=== PATIENT | female | born 1975 | race Caucasian/White ===

== ENCOUNTER → 2021-06-30 | Outpatient (CLI) | payer OTHER | END | disposition home or self-care (01) | LOC: MAMO-SONO 12:12 | PROVIDERS: ATTEND Obstetrics & Gynecology | DX: Z12.31 Encounter for screening mammogram for malignant neoplasm of breast (principal); E06.9 Thyroiditis, unspecified; N94.4 Primary dysmenorrhea ==

== ENCOUNTER 2021-11-26 08:19 | Outpatient (CLI) | payer OTHER | END 2021-11-26 08:22 | disposition home or self-care (01) | LOC: TOM 08:19 | PROVIDERS: ATTEND Internal Medicine Gastroenterology | DX: K56.600 Partial intestinal obstruction, unspecified as to cause (principal) ==